=== PATIENT | female | born 1975 | race Caucasian/White ===

== ENCOUNTER → 2025-01-26 11:28 | Emergency (ER) | payer SELFPAY ==
[2025-01-26 11:34] VITALS: BP 182/105
[2025-01-26 11:58] LABS: % Basophils 0.5 % (0-2); % Eosinophils 2.1 % (0-6); % Immature Granulocytes 0.8 % (0-0.5); % Lymphocytes 16.1 % (20.5-51.1); % Monocytes 10.3 % (1.7-9.3); % Neutrophils 70.2 % (42.2-75.2); Absolute Eosinophils 0.2 10^3/uL (0-0.7); Absolute Immature Granulocytes 0.1 10^3/uL (0-0.05); Absolute Lymphocytes 1.4 10^3/uL (1.2-3.4); Absolute Monocytes 0.9 10^3/uL (0.1-0.6); Absolute Neutrophils 6.1 10^3/uL (1.4-6.5); Hematocrit 43.1 % (37.0-47.0); Hemoglobin 14.7 g/dL (12.0-16.0); Mean Corp Hgb Conc. 34.1 g/dL (33.0-37.0); Mean Corpuscular Hgb 29.1 pg (27.0-31.0); Mean Corpuscular Volume 85.3 fL (81.0-99.0); Mean Platelet Volume 9.1 fL (7.4-10.4); Nucleated Red Blood Cells % 0 %; Platelet Count 229 10^3/uL (130-400); Red Blood Cell Count 5.05 10^6/uL (4.20-5.40); Red Cell Dist. Width 12.2 % (11.5-14.5); White Blood Cell Count 8.7 10^3/uL (4.8-10.8)
[2025-01-26 12:21] LABS: ALT (SGPT) 15 U/L (0-35); AST (SGOT) 17 U/L (14-36); Albumin 4.2 g/dl (3.5-5.0); Alkaline Phosphatase 85 U/L (38-126); Blood Urea Nitrogen 11 mg/dl (7-17); Calcium 9.4 mg/dl (8.4-10.2); Carbon Dioxide 25 mmol/L (22-30); Chloride 103 mmol/L (98-107); Glucose 106 mg/dl (70-99); Sodium 136 mmol/L (135-145); Total Bilirubin 0.6 mg/dl (0.2-1.3); Total Protein 7.3 g/dl (6.3-8.2); eGFR > 60.00
[2025-01-26 15:21] VITALS: BP 165/97
[2025-01-26] MEDS: TYLENOL 650 MG PO (15:28)
[2025-01-26] MEDS: MOTRIN 600 MG PO (15:28)
--- NOTE | 2025-01-26 15:31 | ED.GENMED ---
History of Present Illness
General
Chief Complaint: Cold/Flu/URI Symptoms
Time Seen by Provider: 01/26/25 13:40
History of Present Illness
History of Present Illness:
50-year-old female presents to the emergency department for evaluation of myriad of complaints. She reports cough and congestion as well as general malaise and headaches for the past 4 to 5 days. Notes that she was started on Tamiflu by her
primary care physician yesterday but had to flu test at home today that were both negative. She is also concern for painful swollen lymph node to the right posterior neck that has been present for the past 6 weeks or more and worsening. She feels
as though it is causing discomfort with her neck range of motion. Denies any night sweats or weight loss.
Past History
Past History
ED Past Medical History: GERD (PUD) and Other (Migraines. Pancreatitis October 2011)
ED Past Surgical History: Appendectomy (07/19/2015), Gynecological (Laparoscopy for endometriosis), Orthopedic (Lumbar discectomy 2006) and Other (Breast reduction)
Social History
Tobacco: Non-smoker
Alcohol: None
Drug: None
Personal:
Living: with family
Employment: Employed
Family History
Family History: Other (Lymphoma)
Review of Systems
Review of Systems
Allergies reviewed?: Yes
All Other Systems: ROS reviewed and negative except as documented in HPI and ROS
Phy Exam
Physical Exam
Physical Exam:
GEN: Well appearing, NAD, WDWN
HEENT: Oral mucosa moist, no scleral icterus. Thready palpable clustered lymphadenopathy of the right posterior cervical chain, normal neck range of motion
Cardiac: Regular rate
Lung: No respiratory distress, no tachypnea
MSK: No gross deformity or injuries
Skin: Good color, no pallor or jaundice, no rashes
Neuro: AO x3, moves all extremities freely
Psych: Calm, cooperative
Course
Orders/Labs/Results
Orders:
Orders
01/26/25 11:48
Complete Blood Count/With Diff Urgent
Comprehensive Metabolic Panel Urgent
01/26/25 14:02
US Neck [US Thyroid/Neck/Head] Urgent
Comment:
Reason For Exam: R posterior cervical adenopathy
01/26/25 15:20
Acetaminophen [Tylenol] 650 mg PO NOW STA
Ibuprofen [Motrin] 600 mg PO NOW STA
Abnormal Lab Results
01/26/25
11:48
Abs Immat Gran (auto) 0.1 H 10^3/uL
(0-0.05)
Absolute Monos (auto) 0.9 H 10^3/uL
(0.1-0.6)
Immature Gran % 0.8 H %
(0-0.5)
Lymphocytes % 16.1 L %
(20.5-51.1)
Monocytes % 10.3 H %
(1.7-9.3)
Glucose 106 H mg/dl
(70-99)
01/26/25 11:48
01/26/25 11:48
Vital Signs
Initial and Last Documented VS:
Initial Vital Signs
Temp Pulse Resp BP Pulse Ox
99.1 F 100 18 182/105 98
01/26/25 11:34 01/26/25 11:34 01/26/25 11:34 01/26/25 11:34 01/26/25 11:34
Last Documented Vital Signs
Temp Pulse Resp BP Pulse Ox
99.3 F 79 20 165/97 97
01/26/25 15:21 01/26/25 15:21 01/26/25 15:21 01/26/25 15:21 01/26/25 15:21
MDM/Problems Addressed
MDM/Problems Addressed:
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
syndrome. Ultrasound unrevealing of acute pathology, recommend patient obtain outpatient CT or MRI for further clarification and follow-up with her primary care physician within 1 to 2 weeks to repeat CBC specifically the differential. Recommended
she discontinue Tamiflu at this time
*Critical Care Note
Total Time (30-74mins, 75-104mins- exclusive of procedures): Not Applicable
ED Attending Note
-
Portions of this chart may have been created with voice recognition software.� Occasional wrong word or��sound alike� substitutions may have occurred due to the inherent limitations of voice recognition software.
Discharge Plan
Departure
Patient Disposition: Home (Routine Discharge)
Date of Disposition: 01/26/25
Time of Disposition: 15:55
Patient with high blood pressure during this ER visit?: No
Discharge Problem:
Lymphadenopathy, posterior cervical
Prescriptions:
No Action
cetirizine 10 MG tablet
10 mg PO Q48H
omeprazole magnesium [Prilosec OTC] 20 MG tablet,delayed release (DR/EC)
20 mg PO DAILYPRN PRN (Reason: acid reflux)
multivitamin with folic acid [Tab-A-Jose Luis] 1 TABLET tablet
1 tab PO DAILY
nifedipine 30 MG tablet extended release
30 mg PO DAILY Qty: 30 0RF
ferrous sulfate [iron] 325 MG tablet
325 mg PO DAILY Qty: 30 0RF
clindamycin HCl 300 MG capsule
300 mg PO Q6 Qty: 39 0RF
hydrocodone-acetaminophen 1 TABLET tablet
1 tab PO Q4HPRN PRN (Reason: severe pain) Qty: 12 0RF
lisinopril 10 mg tablet
10 mg PO DAILY Qty: 30 0RF
levofloxacin 500 mg tablet
500 mg PO DAILY 10 Days Qty: 9 0RF
metronidazole 500 mg tablet
500 mg PO TID Qty: 29 0RF
fluconazole [Diflucan] 150 mg tablet
150 mg PO ONCE Qty: 1 0RF
Referrals:
Mahsa Fine, [Family Provider] -
Activity Restrictions/Additional Instructions:
The cause of your swollen lymph nodes is not immediately clear. The ultrasound does not definitively rule out a malignant cause. We discussed the abnormalities in your white blood cell lines that will require follow-up however these could be
explained by the viral symptoms you described. Please discuss an outpatient MRI with IV contrast of your neck as well as repeat complete blood count with your primary care physician to determine if these abnormalities are more concerning
Interventions
Interventions:
*Risk Screen - Suicide Last Done: 01/26/25 11:34
*General Assessment Last Done: 01/26/25 11:34
*Neglect/Abuse Screening Last Done: 01/26/25 11:34
ED- Fall Risk Assessment Last Done: 01/26/25 15:23
*ED COVID-19 Vaccine History Last Done: 01/26/25 15:22
*Nursing Disposition Last Done: 01/26/25 16:00
ED- Pulmonary Assessment Last Done: 01/26/25 15:30
Discharge Date and Time
Print Language: GREEK
== END | disposition home or self-care (01) ==
LOC: EMR 11:28
PROVIDERS: Student in an Organized Health Care Education/Training Program; EMERGENCY PHYSICIAN Emergency Medicine; FAMILY PHYSICIAN Family Medicine
DX: R59.1 Generalized enlarged lymph nodes (principal); K21.9 Gastro-esophageal reflux disease without esophagitis; Z87.11 Personal history of peptic ulcer disease; Z90.49 Acquired absence of other specified parts of digestive tract
CPT/HCPCS: 99284; 76536; 80053; 85025